=== PATIENT | male | born 1940 | race Caucasian/White ===

== ENCOUNTER 2019-05-18 14:34 | Emergency (ER) | payer MEDICARE, OTHER, SELFPAY ==
--- NOTE | 2019-05-18 14:44 | DI.CT.S_ITS ---
PROCEDURE: CT CERVICAL SPINE WO CON INDICATIONS: fall TECHNIQUE: Noncontrast 3 mm thick sections acquired from the skull base to the T4 level. Sagittal and coronal reformats were then constructed. For radiation dose reduction, the following was used: automated exposure control, adjustment of mA and/or kV according to patient size. COMPARISON: None. FINDINGS: Image quality: Excellent. Bones: There is grade 1 retrolisthesis of C3 on C4. There is end plate irregularity at C3-C4. Sclerotic appearance of C3 may be degenerative in nature. There is surgical fusion at C4-C6. Moderate degenerative disease at C2-C3 and C6-C7. No definite fractures or dislocations. There is severe atlantoaxial joint degeneration. Visualized superior ribs are intact. Soft tissues: Prevertebral soft tissues are normal in thickness. No paravertebral hematomas. No apical pneumothoraces. IMPRESSION: 1. No definitive fractures. 2. End plate irregularity at C3-C4. The CT appearance may be secondary to long-standing chronic degenerative disc disease and infectious or inflammatory process in the right clinical setting may be present. Comparison to prior outside exams would be helpful. 3. Extensive degenerative and post surgical changes. Dictated by: Ezequiel Alcala M.D. on 05/18/2019 at 15:14 Approved by: Ezequiel Alcala M.D. on 05/18/2019 at 15:27
--- NOTE | 2019-05-18 14:44 | DI.CT.S_ITS ---
PROCEDURE: CT HEAD/BRAIN WO CON INDICATIONS: fall TECHNIQUE: Noncontrast 4.5 mm thick angled axial sections acquired from the foramen magnum to the vertex, with coronal and sagittal reformats. For radiation dose reduction, the following was used: automated exposure control, adjustment of mA and/or kV according to patient size. COMPARISON: None. FINDINGS: Image quality: Excellent. CSF spaces: Basal cisterns are patent. No extra-axial fluid collections. The ventricles are symmetric in size and shape. Brain: No intracranial bleeds or masses. There is cerebral volume loss for age, with resultant ventricular and sulcal prominence. There are periventricular and deep white matter chronic small vessel ischemic changes. There is intracranial internal carotid artery atherosclerosis. Skull and face: Calvarium and visualized facial bones appear intact, without suspicious lesions. Sinuses: Visualized sinuses and mastoids are clear. IMPRESSION: 1. No acute intracranial abnormalities. 2. Cerebral volume loss and chronic microvascular ischemic changes. Dictated by: Ezequiel Alcala M.D. on 05/18/2019 at 15:11 Approved by: Ezequiel Alcala M.D. on 05/18/2019 at 15:14
[2019-05-18 14:53] VITALS: BP 112/74; PULSE 97; RESP 17; TEMP 36.6; O2SAT 92; BMI 22.8
[2019-05-18 16:14] LABS: Alanine Aminotransferase 12 IU/L (<50); Albumin 5.2 g/dL (3.5-5.0); Albumin Globulin Ratio 1.3 (1.0-2.8); Alkaline Phosphatase 85 U/L (38-126); Aspartate Aminotransferase 17 IU/L (17-59); BUN Creatinine Ratio 11.8 (6-22); Bilirubin Total 0.5 mg/dL (0.2-1.3); Blood Urea Nitrogen 79 mg/dL (9-20); Calcium 10.7 mg/dL (8.4-10.2); Carbon Dioxide 16 mmol/L (22-32); Chloride 106 mmol/L (98-107); Creatine Kinase 180 U/L (55-170); Glucose 148 mg/dL (80-110); HEMOLYSIS < 15 (0-50); Sodium 142 mmol/L (137-145); Total Protein 9.2 g/dL (6.3-8.2)
[2019-05-18 16:15] LABS: Potassium 5.5 mmol/L (3.4-5.1)
--- NOTE | 2019-05-18 16:25 | ED_ITS ---
HPI - Fall General Chief Complaint: Fall Stated Complaint: Fall, hit his head Time Seen by Provider: 05/18/19 15:09 Source: patient Mode of arrival: Wheelchair Limitations: no limitations History of Present Illness HPI Narrative: Patient comes emergency department after losing his balance and hitting his head on the bathroom counter. The patient has been having neck problems for the last 3 months, and actually, had chronic neck issues prior to this. States that 3 months ago, he was painting and felt a pop in his neck. Ever since then, he has had pain throughout his trapezius distribution and limited range of motion of the neck. He seen his primary care physician multiple times for this and has been started on gabapentin and hydrocodone. The patient took his gabapentin and hydrocodone today at 11:00 a.m., and 12:00 p.m., was getting out of the bath on his own when he felt ?woozy?. The patient states that the medications always making feels though he is ?drunk? and that this was the same feeling. Patient's states that she has told the patient to wait to try to get out of the bathtub until she can be there to assist him, but the patient is stubborn and does what he wants to anyway. The patient was holding onto the counter when the arrived and was slumping down. states he hit his face twice on the counter and chipped his tooth. The patient did not lose consciousness, and did not fall to the ground. The patient states he was not hurt in any other way. The states that it is difficult for her to manage the patient at home on his medications, partly because he wants to take 3 bad as day and tries to get himself around without her assistance. The patient's states they have not talked to the primary care physician about assisted living or home health assistance. The patient has previously seen Dr. Kofi hamilton of neurosurgery, but believes that he is now retired, so a referral to another neurosurgeon is pending at this time. Patient does note that the hydrocodone and gabapentin do seem to control his pain reasonably, though he still always has some degree of neck pain and back pain. Related Data Home Medications Medication Instructions Recorded Confirmed Marijuana W Thc-Cbd 1 - 3 drp SUBLINGUAL PRN PRN 05/18/19 05/18/19 cholecalciferol (vitamin D3) 5,000 unit PO DAILY 05/18/19 05/18/19 [Vitamin D3] cyanocobalamin (vitamin B-12) 1,000 mcg PO DAILY 05/18/19 05/18/19 [Vitamin B-12] famotidine 20 mg PO DAILY PRN 05/18/19 05/18/19 ferrous gluconate 324 mg PO DAILY 05/18/19 05/18/19 gabapentin 100 mg PO TID 05/18/19 05/18/19 hydrocodone-acetaminophen 1 tab PO TID PRN 05/18/19 05/18/19 lisinopril 20 mg PO DAILY 05/18/19 05/18/19 melatonin 7.5 mg PO BEDTIME PRN 05/18/19 05/18/19 omega-3 fatty acids 1 cap PO DAILY 05/18/19 05/18/19 Allergies Allergy/AdvReac Type Severity Reaction Status Date / Time No Known Drug Allergies Allergy Verified 05/18/19 14:53 Review of Systems Constitutional Constitutional: Denies chills, Denies fatigue, Denies fever(s), Denies frequent falls, Denies lethargy and Denies weakness Eyes Eyes: Denies change in vision, Denies eye discharge, Denies irritation and Denies loss of vision ENT Ears, Nose, Mouth, and Throat: Denies change in voice, Denies dizziness, Reports neck pain, Denies sore throat and Denies throat swelling Cardiovascular Cardiovascular: Denies chest pain, Denies irregular heart rhythm, Denies lightheadedness, Denies palpitations, Denies dyspnea, Denies dyspnea on exertion and Denies orthopnea Respiratory Respiratory: Denies cough, Denies dyspnea, Denies dyspnea on exertion and Denies wheezing Gastrointestinal Gastrointestinal: Denies abdominal pain, Denies change in bowel habits, Denies diarrhea, Denies nausea and Denies vomiting Genitourinary Genitourinary: Denies hematuria, Denies flank pain, Denies urinary incontinence and Denies urinary urgency Musculoskeletal Musculoskeletal: Reports back pain, Denies muscle weakness, Reports neck pain, Denies numbness and Denies tingling Comments: Neck pain Integumentary/Breasts Skin/Breast: Denies pruritus, Denies erythema, Denies rash and Denies wounds Neurologic Neurologic: Denies behavioral changes, Denies confusion, Denies dizziness, Denies frequent falls, Denies loss of vision, Denies numbness, Denies tingling and Denies weakness Psychiatric Psychiatric: Denies anxiety, Denies behavioral changes, Denies confusion, Denies depression, Denies homicidal ideation and Denies suicidal ideation Endocrine Endocrine: Denies fatigue, Denies flushing and Denies palpitations Hematologic/Lymphatic Hematologic/Lymphatic: Denies easy bruising Allergic/Immunologic Allergic/Immunologic: Denies urticaria, Denies throat swelling and Denies wheezing Patient History Medical History Chronic back pain (Acute) Chronic neck pain (Acute) Surgical History H/O neck surgery (Acute) Previous back surgery (Acute) Social History Smoking Status: Unknown if ever smoked Smoking Status: Unknown if ever smoked alcohol intake frequency: holidays/special occasions only Substance Use Type: does not use Exam Initial Vital Signs Initial Vital Signs: Vital Signs Temperature 97.8 F 05/18/19 14:53 Pulse Rate 97 H 05/18/19 14:53 Respiratory Rate 17 05/18/19 14:53 Blood Pressure 112/74 05/18/19 14:53 Pulse Oximetry 92 05/18/19 14:53 Const General: cooperative and well developed Nutritional Appearance: well nourished [facility] Head: normocephalic and atraumatic Ears: external ears normal Nose: external nose normal and No nasal discharge Face and sinus: face symmetric and No dry mucous membranes Mouth: oral mucosae normal and moist mucous membranes Teeth and gingiva: dentition normal Eyes General: appearance normal, both eyes and all related structures Eyelids: eyelids normal Conjunctivae: conjunctivae normal Sclera: sclerae normal Pupils: PERRL EOM: EOM intact bilaterally Neck Neck: normal visual inspection, trachea midline, No lymphadenopathy, No midline deformity and No JVD Lymphatic: No lymphedema Other: Patient has tenderness of his bilateral paraspinal musculature throughout the trapezius distribution. Palpation of the area triggers a spasm. Chest Chest: normal inspection of the chest Resp Effort & Inspection: normal respiratory effort, able to speak in complete sen tences, no respiratory distress and no use of accessory muscles Auscultation: clear to auscultation bilaterally, no rales, no rhonchi and no wheezes Cardio Rate: regular rate Rhythm: regular rhythm Heart Sounds: no click, no gallops, no murmurs and no rubs Pulses: normal peripheral pulses GI Inspection: non-distended Palpation: soft, no hepatosplenomegaly, No guarding, No pulsatile mass and No tender Auscultation: normal bowel sounds Back/Spine/Pelvis Back: No CVA tenderness Cervical Spine: cervical ROM normal and No pain with cervical ROM Thoracic/Lumbar Spine: thoracic and lumbar spine normal to inspection Skin General: no rashes or lesions noted, No jaundice and No petechiae Neuro General: alert, oriented x3, gait normal and no focal motor deficits Speech: speech normal Extrem General: full ROM, no clubbing, cyanosis or edema, no pedal edema and no calf tenderness Psych Appearance: well kempt Mental Status: mental status grossly normal Attitude: cooperative Thought Content: normal and suicidality Judgment: judgment good Course Course Course Narrative: Patient was worked up with CTs of the head and neck, which were unremarkable for acute findings. I discussed with the patient and findings, and we've discussed prevention of falls at home. The patient did have a spasm in his neck in the emergency department were requested something for pain. He was given a dose of Dilaudid IM. I felt the patient was stable for discharge home. We've discussed the need for follow-up with the patient's primary care physician to discuss home health support for the patient and his . We've discussed also the usual indications for return. Orders Ordered: ED Orders 05/18/19 14:44 CT cervical spine wo con Stat CT head/brain wo con Stat 05/18/19 14:47 EKG-12 Lead Routine 05/18/19 15:52 Comprehensive Metabolic Panel Stat Troponin & CK Cardiac Panel Stat Discontinued Medications Hydromorphone HCl (Dilaudid) 1 mg IM NOW ONE Stop: 05/18/19 16:24 Last Admin: 05/18/19 17:04 Dose: 1 mg Documented by: APOLONIA Vital Signs Vital signs: Vital Signs - 8 hr 05/18/19 14:53 05/18/19 17:04 05/18/19 17:40 Temperature 97.8 F Pulse Rate 97 H 77 80 Respiratory Rate 17 15 15 Blood Pressure 112/74 109/76 Blood Pressure [Left Arm] 122/93 H Pulse Oximetry 92 100 100 MDM - Fall Medical Records Attestation: I reviewed the patient's medical records. Lab Data Attestation: I reviewed the patient's lab results. Result diagrams: 05/18/19 15:52 Labs: Lab Results 05/18/19 Range/Units 15:52 Sodium 142 (137-145) mmol/L Potassium 5.5 H (3.4-5.1) mmol/L Chloride 106 (98-107) mmol/L Carbon Dioxide 16 L (22-32) mmol/L BUN 79 H (9-20) mg/dL Creatinine 6.70 H (0.66-1.25) mg/dL Estimated GFR 8.0 L (>60) mL/min BUN/Creatinine Ratio 11.8 (6-22) Glucose 148 H (80-110) mg/dL Calcium 10.7 H (8.4-10.2) mg/dL Total Bilirubin 0.5 (0.2-1.3) mg/dL AST 17 (17-59) IU/L ALT 12 (<50) IU/L Alkaline Phosphatase 85 (38-126) U/L Total Creatine Kinase 180 H (55-170) U/L CK-MB (CK-2) 2.08 (<2.37) ng/mL CK-MB (CK-2) Rel Index 1.2 L (1.5-5.0) % Troponin I < 0.012 (0.01-0.034) ng/mL Total Protein 9.2 H (6.3-8.2) g/dL Albumin 5.2 H (3.5-5.0) g/dL Globulin 4.0 (1.7-4.1) g/dL Albumin/Globulin Ratio 1.3 (1.0-2.8) Imaging Data CT scan - head: Radiologist's Impression: PROCEDURE: CT HEAD/BRAIN WO CON INDICATIONS: fall TECHNIQUE: Noncontrast 4.5 mm thick angled axial sections acquired from the foramen magnum to the vertex, with coronal and sagittal reformats. For radiation dose reduction, the following was used: automated exposure control, adjustment of mA and/or kV according to patient size. COMPARISON: None. FINDINGS: Image quality: Excellent. CSF spaces: Basal cisterns are patent. No extra-axial fluid collections. The ventricles are symmetric in size and shape. Brain: No intracranial bleeds or masses. There is cerebral volume loss for age, with resultant ventricular and sulcal prominence. There are periventricular and deep white matter chronic small vessel ischemic changes. There is intracranial internal carotid artery atherosclerosis. Skull and face: Calvarium and visualized facial bones appear intact, without suspicious lesions. Sinuses: Visualized sinuses and mastoids are clear. IMPRESSION: 1. No acute intracranial abnormalities. 2. Cerebral volume loss and chronic microvascular ischemic changes. Dictated by: Ezequiel Alcala M.D. on 05/18/2019 at 15:11 Approved by: Ezequiel Alcala M.D. on 05/18/2019 at 15:14 CT C-spine: Radiologist's Impression: PROCEDURE: CT CERVICAL SPINE WO CON INDICATIONS: fall TECHNIQUE: Noncontrast 3 mm thick sections acquired from the skull base to the T4 level. Sagittal and coronal reformats were then constructed. For radiation dose reduction, the following was used: automated exposure control, adjustment of mA and/or kV according to patient size. COMPARISON: None. FINDINGS: Image quality: Excellent. Bones: There is grade 1 retrolisthesis of C3 on C4. There is end plate irregularity at C3-C4. Sclerotic appearance of C3 may be degenerative in nature. There is surgical fusion at C4-C6. Moderate degenerative disease at C2-C3 and C6-C7. No definite fractures or dislocations. There is severe atlantoaxial joint degeneration. Visualized superior ribs are intact. Soft tissues: Prevertebral soft tissues are normal in thickness. No paravertebral hematomas. No apical pneumothoraces. IMPRESSION: 1. No definitive fractures. 2. End plate irregularity at C3-C4. The CT appearance may be secondary to long- standing chronic degenerative disc disease and infectious or inflammatory process in the right clinical setting may be present. Comparison to prior outside exams would be helpful. 3. Extensive degenerative and post surgical changes. Dictated by: Ezequiel Alcala M.D. on 05/18/2019 at 15:14 Approved by: Ezequiel Alcala M.D. on 05/18/2019 at 15:27 Discharge Plan Departure Patient Disposition: Home Clinical Impression: Chronic neck pain Chronic back pain Qualifiers: Back pain location: low back pain Back pain laterality: unspecified Sciatica presence: unspecified whether sciatica present Qualified Code(s): M54.5 - Low back pain Discharge Date/Time: 05/18/19 17:41 Instructions: How to Prevent Falls, DI for Chronic Neck Pain Activity Restrictions/Additional Instructions: Please continue your home medications. Please consider taking your bath before you take your pain medication, or waiting for a couple of hours after taking the meds before you take baths, to minimize the possibility of losing your balance and falling. Please also allow your to assist you, prior to attempting to get out of the bath on your own if you are not able to balance yourself. Please follow up with your primary care physician to discuss the possibility of home health assistance. Prescriptions: No Action hydrocodone-acetaminophen 7.5-325 mg tablet 1 tab PO TID PRN (Reason: pain) RF: 0 gabapentin 100 mg capsule 100 mg PO TID RF: 0 lisinopril 20 mg Tablet 20 mg PO DAILY RF: 0 cyanocobalamin (vitamin B-12) [Vitamin B-12] 1,000 mcg Tablet 1,000 mcg PO DAILY RF: 0 famotidine 20 mg Tablet 20 mg PO DAILY PRN (Reason: Acid Reflux) RF: 0 melatonin 5 mg Tablet 7.5 mg PO BEDTIME PRN (Reason: Sleep) RF: 0 cholecalciferol (vitamin D3) [Vitamin D3] 5,000 unit Tablet 5,000 unit PO DAILY RF: 0 ferrous gluconate 324 mg (37.5 mg iron) Tablet 324 mg PO DAILY RF: 0 Marijuana W Thc-Cbd tincture 1 - 3 drp sublingual PRN PRN (Reason: cancer treatment) RF: 0 omega-3 fatty acids 1 cap PO DAILY RF: 0 Referrals: Chris Crawford MD [Primary Care Provider] -
[2019-05-18 16:26] LABS: Troponin I < 0.012 ng/mL (0.01-0.034)
[2019-05-18 16:30] LABS: CKMB % Relative Index 1.2 % (1.5-5.0); Creatine Kinase MB 2.08 ng/mL (<2.37)
[2019-05-18 17:04] VITALS: BP 122/93; PULSE 77; RESP 15; O2SAT 100
[2019-05-18] MEDS: HYDROMORPHONE 1 MG INJ IM (17:04)
[2019-05-18 17:40] VITALS: BP 109/76; PULSE 80; RESP 15; O2SAT 100
== END 2019-05-18 17:41 | disposition home or self-care (01) ==
PROVIDERS: Internal Medicine; Emergency Provider Emergency Medicine; Family Provider Internal Medicine; PCP Internal Medicine
DX: M54.2 Cervicalgia (principal); M54.5 Low back pain; W18.09XA Striking against other object with subsequent fall, initial encounter
CPT/HCPCS: 36415; 70450; 72125; 80053; 82550; 82553; 84484; 93005; 96372; 99284; 99285; J1170

== ENCOUNTER → 2019-07-17 08:40 | Outpatient (CLI) | payer MEDICARE, OTHER, SELFPAY ==
[2019-07-17 10:05] LABS: Alanine Aminotransferase 12 IU/L (<50); Albumin 4.2 g/dL (3.5-5.0); Albumin Globulin Ratio 1.4 (1.0-2.8); Alkaline Phosphatase 69 U/L (38-126); Aspartate Aminotransferase 18 IU/L (17-59); BUN Creatinine Ratio 19.8 (6-22); Bilirubin Total 0.5 mg/dL (0.2-1.3); Blood Urea Nitrogen 48 mg/dL (9-20); Calcium 9.9 mg/dL (8.4-10.2); Carbon Dioxide 25 mmol/L (22-32); Chloride 109 mmol/L (98-107); Globulin 3.1 g/dL (1.7-4.1); Glucose 112 mg/dL (80-110); HEMOLYSIS < 15 (0-50); Potassium 3.9 mmol/L (3.4-5.1); Sodium 140 mmol/L (137-145); Total Protein 7.3 g/dL (6.3-8.2)
== END ==
PROVIDERS: Family Provider Internal Medicine; PCP Internal Medicine
DX: N18.3 Chronic kidney disease, stage 3 (moderate) (principal)
CPT/HCPCS: 36415; 80053

== ENCOUNTER → 2019-07-19 14:01 | Outpatient (CLI) | payer MEDICARE, OTHER, SELFPAY ==
[2019-07-19 15:02] LABS: Add Manual Diff / Slide Review NO; Basophils Absolute Auto 0 /uL (0-100); Basophils Percent Auto 0.2 % (0-2); Eosinophils Absolute Auto 0 /uL (0-450); Hematocrit 24.5 % (41-53); Hemoglobin 8.1 g/dL (13.5-17.5); Lymphocytes Absolute Auto 800 /uL (1100-4500); Lymphocytes Percent Auto 7.3 % (25-40); Mean Corpuscular HGB Conc 32.9 % (30-36); Mean Corpuscular Hemoglobin 31.8 PG (26-34); Mean Corpuscular Volume 96.5 fL (80-100); Monocytes Absolute Auto 600 /uL (0-900); Monocytes Percent Auto 5.3 % (3-14); Neutrophils Absolute Auto 9700 /uL (1500-7000); Neutrophils Percent Auto 87.2 % (50-75); Platelet Count 359 X10^3/uL (150-400); Red Blood Cell Count 2.54 X10^6/uL (4.5-5.9); Red Cell Distribution Width 15.3 % (11.6-14.8); White Blood Cell Count 11.2 X10^3/uL (4.5-11.0)
[2019-07-19 15:21] VITALS: BP 125/57; PULSE 55; RESP 18; TEMP 36.5
[2019-07-19] MEDS: DARBEPOETIN 40 MCG/0.4 ML SYRINGE SUBCUT (15:22)
[2019-07-19 15:23] LABS: Iron 62 ug/dL (49-181)
[2019-07-19 15:32] LABS: Percent Iron Saturation 29 % (20-50); Total Iron Binding Capacity 212 ug/dL (261-462)
[2019-07-19 15:54] LABS: Ferritin 293 ng/mL (18-464)
[2019-07-31 14:41] LABS: Add Manual Diff / Slide Review NO; Basophils Absolute Auto 0 /uL (0-100); Basophils Percent Auto 0.3 % (0-2); Eosinophils Absolute Auto 0 /uL (0-450); Eosinophils Percent Auto 0.2 % (2-4); Hematocrit 29.6 % (41-53); Hemoglobin 9.8 g/dL (13.5-17.5); Lymphocytes Absolute Auto 800 /uL (1100-4500); Mean Corpuscular HGB Conc 33.2 % (30-36); Mean Corpuscular Hemoglobin 32.5 PG (26-34); Mean Corpuscular Volume 97.8 fL (80-100); Monocytes Absolute Auto 400 /uL (0-900); Monocytes Percent Auto 5.7 % (3-14); Neutrophils Absolute Auto 6300 /uL (1500-7000); Neutrophils Percent Auto 82.8 % (50-75); Platelet Count 362 X10^3/uL (150-400); Red Blood Cell Count 3.03 X10^6/uL (4.5-5.9); Red Cell Distribution Width 15.4 % (11.6-14.8); White Blood Cell Count 7.7 X10^3/uL (4.5-11.0)
== END ==
PROVIDERS: Family Provider Internal Medicine; PCP Internal Medicine; Referring Provider Internal Medicine; Visit Provider Internal Medicine Nephrology
DX: N18.3 Chronic kidney disease, stage 3 (moderate) (principal); D63.1 Anemia in chronic kidney disease
CPT/HCPCS: 82728; 83540; 83550; 85025; 96372; J0881

== ENCOUNTER → 2019-07-31 14:12 | Outpatient (CLI) | payer MEDICARE, OTHER, SELFPAY ==
[2019-07-31 14:30] VITALS: BP 137/67; PULSE 67; RESP 16; TEMP 36.7; O2SAT 99
[2019-07-31] MEDS: DARBEPOETIN 40 MCG/0.4 ML SYRINGE SUBCUT (14:58)
--- NOTE | 2019-07-31 15:15 | PC.NURSE ---
Labs sent to PCP Patient requested labs be sent to Dr. Peralta at [facility]. Labs faxed today, confirmation printed.
== END ==
PROVIDERS: Family Provider Internal Medicine; PCP Internal Medicine; Referring Provider Internal Medicine Nephrology; Visit Provider Internal Medicine Nephrology
DX: N18.9 Chronic kidney disease, unspecified (principal); D63.1 Anemia in chronic kidney disease
CPT/HCPCS: 36415; 96372; J0881

== ENCOUNTER → 2019-08-14 13:58 | Outpatient (CLI) | payer MEDICARE, OTHER, SELFPAY ==
[2019-08-14 14:29] LABS: Add Manual Diff / Slide Review NO; Basophils Absolute Auto 0 /uL (0-100); Basophils Percent Auto 0.9 % (0-2); Eosinophils Absolute Auto 0 /uL (0-450); Eosinophils Percent Auto 0.4 % (2-4); Hemoglobin 9.9 g/dL (13.5-17.5); Lymphocytes Absolute Auto 1000 /uL (1100-4500); Lymphocytes Percent Auto 17.9 % (25-40); Mean Corpuscular HGB Conc 32.9 % (30-36); Mean Corpuscular Hemoglobin 32.6 PG (26-34); Mean Corpuscular Volume 99.1 fL (80-100); Monocytes Absolute Auto 400 /uL (0-900); Neutrophils Absolute Auto 4200 /uL (1500-7000); Neutrophils Percent Auto 73.8 % (50-75); Platelet Count 347 X10^3/uL (150-400); Red Blood Cell Count 3.03 X10^6/uL (4.5-5.9); Red Cell Distribution Width 15.4 % (11.6-14.8); White Blood Cell Count 5.7 X10^3/uL (4.5-11.0)
[2019-08-14 14:32] VITALS: BP 154/84; PULSE 69; RESP 18; TEMP 36.9; O2SAT 97
[2019-08-14] MEDS: DARBEPOETIN 40 MCG/0.4 ML SYRINGE SUBCUT (14:41)
[2019-08-14 15:17] LABS: Alanine Aminotransferase 13 IU/L (<50); Albumin 4.2 g/dL (3.5-5.0); Albumin Globulin Ratio 1.4 (1.0-2.8); Alkaline Phosphatase 75 U/L (38-126); Aspartate Aminotransferase 31 IU/L (17-59); Bilirubin Total 0.4 mg/dL (0.2-1.3); Blood Urea Nitrogen 36 mg/dL (9-20); Calcium 9.5 mg/dL (8.4-10.2); Carbon Dioxide 26 mmol/L (22-32); Chloride 102 mmol/L (98-107); Estimated Glomerular Filt Rate 26.2 mL/min (>60); Globulin 3.1 g/dL (1.7-4.1); Glucose 125 mg/dL (80-110); HEMOLYSIS < 15 (0-50); Potassium 5.2 mmol/L (3.4-5.1); Sodium 136 mmol/L (137-145); Total Protein 7.3 g/dL (6.3-8.2)
== END ==
PROVIDERS: Family Provider Internal Medicine; PCP Family Medicine; Referring Provider Family Medicine; Visit Provider Internal Medicine Nephrology
DX: N18.3 Chronic kidney disease, stage 3 (moderate) (principal); D63.1 Anemia in chronic kidney disease
CPT/HCPCS: 36415; 80053; 85025; 96372; J0881

== ENCOUNTER → 2019-08-28 13:47 | Outpatient (CLI) | payer MEDICARE, OTHER, SELFPAY ==
[2019-08-28 15:03] LABS: Hematocrit 29.8 % (41-53); Hemoglobin 9.9 g/dL (13.5-17.5); Mean Corpuscular Hemoglobin 32.3 PG (26-34); Mean Corpuscular Volume 97.8 fL (80-100); Platelet Count 373 X10^3/uL (150-400); Red Blood Cell Count 3.05 X10^6/uL (4.5-5.9); Red Cell Distribution Width 13.9 % (11.6-14.8); White Blood Cell Count 5.5 X10^3/uL (4.5-11.0)
[2019-08-28 15:06] VITALS: BP 144/71; PULSE 69; RESP 16; TEMP 36.8; O2SAT 97
[2019-08-28] MEDS: DARBEPOETIN 40 MCG/0.4 ML SYRINGE SUBCUT (15:10)
== END ==
PROVIDERS: Family Provider Internal Medicine; PCP Family Medicine; Referring Provider Internal Medicine Nephrology; Visit Provider Internal Medicine Nephrology
DX: N18.3 Chronic kidney disease, stage 3 (moderate) (principal); D63.1 Anemia in chronic kidney disease
CPT/HCPCS: 36415; 85027; 96372; J0881